=== PATIENT | female | born 1945 | race Caucasian/White ===

== ENCOUNTER 2023-10-12 04:47 | Day surgery (SDC) | payer OTHER, BC ==
[2023-10-10 12:05] VITALS: BMI 24.3
[2023-10-12] MEDS ORDERED: ACETAMINOPHEN INJECTION 100 ML IVPB ONE (13:15)
[2023-10-12] MEDS ORDERED: LIDOCAINE HCL 2% JELLY 11 ML TP ONE (13:16)
[2023-10-12] MEDS: ACETAMINOPHEN 1000 MG/100 ML BAG IVPB ONE (13:17)
[2023-10-12] MEDS: LIDOCAINE HCL 2% JELLY 10 ML CARTRIDGE TP ONE (13:23)
[2023-10-12 13:33] VITALS: TEMP 98.4
[2023-10-12 14:06] VITALS: BP 159/56; PULSE 62; RESP 22
== END 2023-10-12 14:13 | disposition home or self-care (01) ==
LOC: JASU-ENDO 04:47
PROVIDERS: ATTEND Internal Medicine Gastroenterology
PROC: 0DB68ZX Excision of Stomach, Via Natural or Artificial Opening Endoscopic, Diagnostic (ICD-10-PCS; 2023-10-12)
PROC: 0DB78ZX Excision of Stomach, Pylorus, Via Natural or Artificial Opening Endoscopic, Diagnostic (ICD-10-PCS; 2023-10-12)
PROC: 06LY7CC Occlusion of Hemorrhoidal Plexus with Extraluminal Device, Via Natural or Artificial Opening (ICD-10-PCS; 2023-10-12)
PROC: 0DBL8ZX Excision of Transverse Colon, Via Natural or Artificial Opening Endoscopic, Diagnostic (ICD-10-PCS; principal; 2023-10-12 12:30)
DX: D12.3 Benign neoplasm of transverse colon (principal); K29.50 Unspecified chronic gastritis without bleeding; K64.8 Other hemorrhoids; K64.4 Residual hemorrhoidal skin tags; I10 Essential (primary) hypertension; D50.9 Iron deficiency anemia, unspecified
CPT/HCPCS: 88305-TC; 88342-TC; J0131

== ENCOUNTER 2025-08-14 20:21 | Emergency (ER) | payer OTHER, BC ==
[2025-08-14 20:32] VITALS: PULSE 80; TEMP 98.5; BMI 23.3
[2025-08-14] MEDS ORDERED: ONDANSETRON 4 MG/2 ML VIAL ONE (21:22)
[2025-08-14] MEDS: LACTATED RINGERS SOLUTION 1000 ML INFUS.BAG IV ONE (21:51)
[2025-08-14] MEDS: ONDANSETRON 4 MG/2 ML VIAL IVPB ONE (21:51)
[2025-08-14 21:54] LABS: ABSOLUTE IMMATURE GRANULOCYTES 0.06 x10^3/uL (0.0-0.031); BASOPHILS # 0.04 x10^3/uL (0.01-0.08); EOSINOPHIL % 0.6 % (0.7-5.8); EOSINOPHILS # 0.06 x10^3/uL (0.04-0.36); MCHC 32.6 g/dl (32.2-35.5); MEAN CELL VOLUME 91.5 fl (79.4-94.8); MEAN PLT VOLUME 9.7 fl (9.4-12.3); MONOCYTE # 1.29 x10^3/uL (0.24-0.86); MONOCYTE % 12.7 % (4.7-12.5); RDW 14.7 % (12.4-16.6)
[2025-08-14 21:57] LABS: EPI CELLS 9 /uL (0-25.1); HYALINE CASTS 0 /uL (0-3.1); URINE APPEARANCE CLEAR; URINE BACTERIA 17 /uL (0-1359); URINE BILIRUBIN NEGATIVE (NEGATIVE); URINE COLOR YELLOW; URINE GLUCOSE (UA) NEGATIVE (NEGATIVE); URINE KETONE 1+ (NEGATIVE); URINE LEUK ESTERASE 1+ (NEGATIVE); URINE NITRITE NEGATIVE (NEGATIVE); URINE PROTEIN NEGATIVE (NEGATIVE); URINE RBC 13 /uL (0-23.9); URINE UROBILINOGEN 0.2 mg/dL (0.2-1.0); URINE WBC 24 /uL (0-25.8)
[2025-08-14 22:10] LABS: GLUCOSE,RANDOM 93.0 mg/dL (74-106); TOT PROT 6.9 g/dl (6.4-8.2)
[2025-08-14 22:11] LABS: CO2 28.0 mmol/L (21-32)
[2025-08-14 22:13] LABS: ALK PHOS 91.0 U/L (40-150)
[2025-08-14 22:16] LABS: CREATININE 0.77 mg/dL (0.55-1.3); SGOT/AST 34.0 U/L (5-34); SGPT/ALT 14.0 U/L (0-55)
[2025-08-14 22:37] LABS: HCV DIAGNOSTIC IN-HOUSE W/RFLX NON-REACTIVE (NONREACTIVE); HIV INTERPRETATION NEGATIVE (NEGATIVE)
[2025-08-14] MEDS ORDERED: ACETAMINOPHEN INJECTION 100 ML ONE (22:55)
[2025-08-14] MEDS: ACETAMINOPHEN 1000 MG/100 ML BAG IVPB ONE (23:12)
[2025-08-14] MEDS ORDERED: METOCLOPRAMIDE HCL INJECTION 10 MG/2 ML VIAL ONE (23:33)
[2025-08-14] MEDS: METOCLOPRAMIDE HCL INJECTION 10 MG/2 ML VIAL IVPB ONE (23:37)
[2025-08-15 00:22] VITALS: BP 164/63; RESP 22
[2025-08-15] MEDS ORDERED: LIDOCAINE 5% TOPICAL PATCH TP ONE (00:44)
[2025-08-15] MEDS ORDERED: LIDOCAINE 5% TOPICAL PATCH ONE (01:04)
[2025-08-15] MEDS ORDERED: LIDOCAINE PATCH REMOVAL MC SCH (22:00)
== END 2025-08-15 01:16 | disposition home or self-care (01) ==
LOC: JER 20:21
PROC: 3E033NZ Introduction of Analgesics, Hypnotics, Sedatives into Peripheral Vein, Percutaneous Approach (ICD-10-PCS; principal; 2025-08-14)
PROC: 3E033GC Introduction of Other Therapeutic Substance into Peripheral Vein, Percutaneous Approach (ICD-10-PCS; 2025-08-14)
PROC: 3E033GC Introduction of Other Therapeutic Substance into Peripheral Vein, Percutaneous Approach (ICD-10-PCS; 2025-08-14)
DX: R19.7 Diarrhea, unspecified (principal); R10.30 Lower abdominal pain, unspecified; R11.0 Nausea
CPT/HCPCS: 36415; 71045-TC-FY; 74176-TC; 80053; 81003; 83605; 83690; 85025; 86803; 87086; 87389; 93005; 93010; 99285-25